=== PATIENT | male | born 1970 | race Caucasian/White ===

== ENCOUNTER 2023-11-12 14:26 | Outpatient (CLI) | payer OTHER, SELFPAY ==
[2023-11-12 14:37] VITALS: BMI 23.0
--- NOTE | 2023-11-12 14:40 | PC.NURSE ---
1440-collected labs via venipuncture stick in left ac with butterfly needle. pt d/c home
[2023-11-12 15:01] LABS: Chloride 103 mmol/L (98-107); Potassium 4.3 mmoL/L (3.5-5.1); Sodium 140 mmol/L (136-145)
[2023-11-12 15:04] LABS: Anion Gap 9.3 mEq/L (5-15); Blood Urea Nitrogen 14 mg/dl (9-20); Calcium 8.9 mg/dl (8.4-10.2); Carbon Dioxide 32 mmol/L (22.0-30.0); Creatinine Clearance Estimated 88 mL/min (50-200); Estimated Glomerular Filt Rate 78 ml/min (>60); GFR (African American) 94 ML/MIN (>60); Glucose 96 mg/dl (74-100)
== END 2023-11-12 14:45 | disposition home or self-care (01) ==
LOC: LAB 14:29 → INF 14:30
PROVIDERS: Visit Provider Internal Medicine
DX: I10 Essential (primary) hypertension (principal)
CPT/HCPCS: 36415; 80048

== ENCOUNTER 2025-10-17 08:16 | Outpatient (CLI) | payer OTHER, SELFPAY ==
--- NOTE | 2025-10-17 08:20 | PC.NURSE ---
0820-collected labs via venipuncture stick in left ac with butterfly needle
--- OUTSIDE RECORDS SUMMARY | 2025-10-17 08:21 | XMS_ITS | Clinical Summary ---
Author Organization [employer] ([place], [place], [place], [place], [place]) Address [address] [place] [address] Care Team Providers Care Faculty Research Physician Name Role Phone Karl Rose MD Primary Care Provider [phone] Social History Tobacco Use Types Packs/Day Years Used Date Smoking Tobacco: Never Assessed Food Insecurity Answer Date Recorded Food run out past 12 months Not on file 11/16 Food did not last past 12 months Not on file 12/03/2023 Employment Answer Date Recorded Help finding and keeping a job Not on file 0 12/03/2023 Family and Community Support Answer Rehan e Recorded Help with Day to Day Activities Not on file 12/03/2023 Feeling Lonely or Isolated Not on file 12/03 Educational Attainment Answer Date Alexander rded Speak language other than Citizen [place] at home Not on file 12/03/2023 Want help with school or training Not on file 12/03/2023 Substance Use Answer Date Recorded Used prescription meds for non-medical reasons N ot on file 12/03/2023 Used illegal drugs past 12 months Not on file 12/03/2023 Sex and Gender Information Value Date Recorded Sex Assigned at Not on file Legal Sex Male 5:20 PM CDT Gender Identity Not on file Sexual Orientation Not on file Plan of Treatment Health Maintenance Due Date Last Done Comments CT Colonography 1968 Colonoscopy 1968 Colorectal Cancer Screening 1968 FOBT/FIT 1968 Fit-DNA (Cologuard) 1968 Sigmoidoscopy 1968 Depression Screening (12+) 1980 Tobacco Cessation Counseling and Screening (12+) 1980 HIV Screening 02/18/1983 Hepatitis C Screening 02/18/1986 DTAP/TDAP/TD VACCINES (1 - Tdap) 02/18/1987 Pneumococcal 50+ years (1 of 1 - PCV) 02/18/2018 Shingles Vaccine (Zoster) (1 of 2) 02/18/2018 COVID-19 VACCINE (4 - 2024- season) 2025 10/17/2021, 12/19/2020, 11/21/2020 Influenza Vaccine (#1) 2025 09/12/2019, 2016 Lipid Panel 08/11/2028 08/11/2023 Procedures Procedure Name Priority Date/Time Associated Diagnosis Comments LIPID PANEL Routine 08/11/2023 8:14 AM EDT General medical examination from Last 3 Months or Most Recently Relevant to Health Maintenance Results * (ABNORMAL) Lipid panel (08/11/2023 8:14 AM EDT) Triglycerides 57 0 - 249 mg/dL 08/11/2023 8:51 AM EDT [facility] Cholesterol 197 0 - 199 mg/dL 08/11/2023 8:51 AM T [facility] Comment: 200 to 239 mg/dL = Moderate (borderline) >239 mg/dL = High HDL Cholesterol 57 >=40 mg/dL 08/11/2023 8:51 AM T [facility] Comment: >=60 mg/dL = Desirable <40 mg/dL = Increased Risk All other components are listed individually or are calculations VLDL Cholesterol 11.4 5 - 40 mg/dL 08/11/2023 8:51 AM EDT [facility] Cholesterol/HDL ratio 3.5(H) 0.0 - 3.2 08/11/2023 8:51 AM EDT [facility] LDl/HDL Ratio 2 0 - 4 08/11/2023 8:51 AM EDT [facility] RISK COMP 3 08/11/2023 8:51 AM T [facility] LDL Cholesterol, Calculated 129(H) 0 - 99 mg/dL 08/11/2023 8:51 AM [facility] Blood Venipuncture / Unknown 08/11/2023 8:14 AM EDT 08/11/2023 8:14 AM EDT us Karl Rose MD LAB BLOOD ORDERABLES Final Res ult [facility] [address] [place] [address], [facility] [phone] from Last 3 Months or Most Recently Relevant to Health Maintenance Insurance BLUE CROSS/BLUE SHIELD BLUE CROSS/BLUE SHIELD Care Teams Faculty Research Physician Relationship Specialty Start Date End Date Karl Rose MD PCP - General Internal Medicine 08/11/23
--- OUTSIDE RECORDS SUMMARY | 2025-10-17 08:21 | XMS_ITS | Data Portability ---
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 Symptoms for the last 4 weeks. My impression and plan Not available 09/05/2024 16:43:58 Plan of Treatment Reminders Order Date Submit Date Provider Last Modified By Organization Details Last Modified Time Details Appointments PHYSICAL EXAM 2025 09:00A M DINESH VILLANUEVA MD Not available Not available Not available Lab PSA, total, serum or plasma 2024 025 [email or web address] [facility], [address] [place] [address], [phone], 01/23/2025 07:46:48 PSA, total, serum or plasma 2024 026 [email or web address] [facility], [address] [place] [address], [address], 12/12/2024 10:09:36 CMP, serum or plasma 2024 025 [email or web address] [facility], [address] [place] [address], [phone], 01/23/2025 07:46:48 CBC w/ auto diff [address], [address] [place] [address], [phone], 01/23/2025 07:46:48 CMP, serum or plasma 2024 026 [facility], [address] [place] [address], [phone], 12/12/2024 10:09:37 CBC w/ auto diff 2024 026 [facility], [address] [place] [address], [address], 12/12/2024 10:09:37 lipid panel, serum [address] [facility], [address] [place] [address], [address], 01/23/2025 07:46:48 TSH, serum, reflex free T4 [address] [facility] [address] [facility], [address] [place] [address], [address], 01/23/2025 07:46:48 lipid panel, serum 2024 026 [facility], [address] [place] [address], [address], 12/12/2024 10:09:37 TSH, serum, reflex free T4 2024 026 [facility], [address] [place] [address], [address], 12/12/2024 10:09:37 ESR (erythroc yte sedimenta tion rate), blood 2023 024 TRAVIS [facility], [address] [place] [address], [phone], 09/05/2024 18:30:07 C reactive protein, QN, serum or plasma 2023 [facility], [address] [place] [address], [address], 09/05/2024 18:00:55 interleuk in-6 (il-6), serum 2023 [facility], [address] [place] [address], [phone], 09/10/2024 22:01:23 Referral None recorded. Procedures None recorded. Surgeries None recorded. Imaging XR, temporoma ndibular joint, bilateral - right TMJ synovitis with psoriatic arthritis - tender 2023 [facility], [address] [place] [address], [phone], 09/06/2024 07:58:41 Medication Orders azithromy adrian 250 mg tablet 2024 025 [facility], [address] [place] [address] [address] [place], [id number], 12/14/2024 12:23:02 Medrol (Rudolph) 4 mg tablets in a dose pack 2024 025 [facility], [address] [place] [address] [address], [place], [place], [id number], 12/14/2024 12:23:03 Patient TargetsNo targets recorded. Patient Instructions Encounter Date Encounter Id Patient Instructions Last Modified By Organization Details Last Modified Time 02/08/2024 [id number] continue +2.50 readers recheck 2 yr noemi Not available 02/08/2024 09:35:45 09/05/2024 [id number] rt index and thumb , [email or web address] Not available 09/05/2024 15:51:30 12/12/2024 [id number] wellness education [email or web address] Not available 12/12/2024 10:09:37 scripts reviewed risks/benefits reviewed high risk meds reviewed labs when fasting continue current medication continue ot monitor labs rtc 12 months with labs physical and prn [email or web address] Not available 12/09/2024 12:33:46 Reason for Referral None Reported. Results Created Date Observation Date Name Description Value Unit Range Abnormal Flag Note LastModifiedBy Organization Detail LastModifiedTime 02/01/20 24 02/01/2024 SURGI [facility] surgical SEE BELOW normal Depar tment of Patho logy Surgi chi Patho logy Repor t NAME: EDGARDO LOPEZ PATH. :ST-2 [id number] Copy to: Diagn osis: A) Esoph ageal biops y: Squam ous mucos a with non-d iagno stic findi ngs. B) Sigmo id polyp : Hyper plast ic polyp . SOURC E OF SPECI MEN: ESOPH AGEAL BIOPS Y COLON POLYP , SIGMO ID CLINI CHI INFOR MATIO N: A) - CHANTELLE L ESOPH YESENIA. BIOPS IED. - CHANTELLE L STOMA CH. - CHANTELLE L EXAMI ROHINI DUODE NUM. [id number] - HEART BURN COLLE CTION : A SPECI MEN REMOV AL: 10:[address] D IN FIXAT KAVYA: 10:15 O'MANJEET CK COLD ISCHE ASHLEY TIME: 0 MINUT ES TOTAL FIXAT ION TIME: 9 HOURS B) - ONE 3mm POLYP IN THE SIGMO ID COLON , REMOV ED WITH A COLD BIOPS Y FORCE PS. RESEC HECTOR & RETRI EVED. - THE EXAMI NATIO N WAS OTHER JEROME CHANTELLE L. Z86.0 10 - PERSO NAL HX COLON IC POLYP S D12.5 - BENIG N NEOPL ASM OF SIGMO ID COLON Gross Descr iptio n: A) Recei vanessa in forma dodie label ed with the patie nt's name and desig nated esop hagea l biops y are two fragm ents of pale cheema tissu e measu ring 0.3 and 0.5 cm. Entir colleen submi tted in one casse tte label ed A1. B) Recei vanessa in forma dodie label ed with the patie nt's name and desig nated sigm oid polyp is a singl e fragm ent of pale cheema tissu e measu ring 0.3 cm. Entir colleen submi tted in one casse tte label ed B1. LP 01/31 05:39 PM Micro scopi c Descr iptio n: A micro scopi c exami natio n has been perfo rmed and the resul t(s) are as noted above . MANNY GARCIA M.D. Eulalia d Out Date: 02/01 10:34 Page 1 of 1 Not Available [facility] [address] [place] [address], [phone], 02/02/2024 10:34:44 09/05/20 24 09/05/2024 C REACT KAVYA PROTE IN C reactive protein 0.61 mg/dL 0.00-0 .49 high Not Available [facility] [address] [place] [address], [phone], 09/05/2024 18:00:55 09/05/2009/05/2024 ESR, AUTOM ATED ESR, automated 11 mm 0-19 normal Not Available [facility] [address] [place], [address], 09/05/2024 18:30:07 09/05/20 24 09/10/2024 INTER LEUKI N-6 interleukin- 6 4.15 pg/mL <5.00 normal This test was perfo rmed using a kit that has not been clear ed or appro vanessa by the FDA. The ankit tical perfo rmanc e lydia cteri stics of this test have been deter mined by [facility] [place] Dobson transonu . This test shoul d not be used for diagn osis witho ut confi rmati on by other medic ally estab lishe d means . Not Available [facility] [address] [place] [address], [address], 09/10/2024 22:01:22 12/29/19 25 12/29/2024 COMPL ETE BLOOD COUNT white blood cells 8.2 10*3/ uL 3.8-10 .8 normal Not Available [facility] [address] [place] [address], [address], 12/29/2024 07:48:40 12/29/19 25 12/29/2024 COMPL ETE BLOOD COUNT red blood cells 4.85 10*6/ uL 4.20-5 .80 normal Not Available [facility] [address] [place] [address], [address], 12/29/2024 07:48:40 12/29/19 25 12/29/2024 COMPL ETE BLOOD COUNT hemoglobin 15.2 g/dL 14.0-1 8.0 normal Not Available [facility] [address] [place] [address], [address], 12/29/2024 07:48:40 12/29/19 25 12/29/2024 COMPL ETE BLOOD COUNT hematocrit 45.0 % 40.0-5 2.0 normal Not Available [facility] [address] [place] [address], [address], 12/29/2024 07:48:40 12/29/19 25 12/29/2024 COMPL ETE BLOOD COUNT MCV 93 fL 80-100 normal Not Available [facility] [address] [place] [address], [address], 12/29/2024 07:48:40 12/29/19 25 12/29/2024 COMPL ETE BLOOD COUNT MCH 31 pg 26-35 normal Not Available [facility] [address] [place] [address], [address], 12/29/2024 07:48:40 12/29/19 25 12/29/2024 COMPL ETE BLOOD COUNT MCHC 34 g/dL 32-36 normal Not Available [facility] [address] [place] [address], [address], 12/29/2024 07:48:40 12/29/19 25 12/29/2024 COMPL ETE BLOOD COUNT RDW 12.9 % 11.0-1 5.0 normal Not Available [facility] [address] [place] [address], [address], 12/29/2024 07:48:40 12/29/19 25 12/29/2024 COMPL ETE BLOOD COUNT MPV 7.5 fL 6.2-10 .5 normal Not Available [facility] [address] [place] [address], [address], 12/29/2024 07:48:40 12/29/19 25 12/29/2024 COMPL ETE BLOOD COUNT platelet count 310 10*3/ uL 150-40 0 normal Not Available [facility] [address] [place] [address], [address], 12/29/2024 07:48:40 12/29/19 25 12/29/2024 COMPL ETE BLOOD COUNT neutrophil,a bsolute 4.0 10*3/ uL 1.6-8. 4 normal Not Available [facility] [address] [place] [address], [address], 12/29/2024 07:48:40 12/29/19 25 12/29/2024 COMPL ETE BLOOD COUNT lymphocyte,a bsolute 2.7 10*3/ uL 0.4-5. 1 normal Not Available [facility] [address] [place] [address], [address], 12/29/2024 07:48:40 12/29/19 25 12/29/2024 COMPL ETE BLOOD COUNT monocyte,abs olute 1.2 10*3/ uL 0.0-1. 2 normal Not Available [facility] [address] [place] [address], [address], 12/29/2024 07:48:40 12/29/19 25 12/29/2024 COMPL ETE BLOOD COUNT eosinophil,a bsolute 0.1 10*3/ uL 0.0-0. 8 normal Not Available [facility] [address] [place] [address], [address], 12/29/2024 07:48:40 12/29/19 25 12/29/2024 COMPL ETE BLOOD COUNT basophil,abs olute 0.1 10*3/ uL 0.0-0. 3 normal Not Available [facility] [address] [place] [address], [address], 12/29/2024 07:48:40 12/29/19 25 12/29/2024 COMPL ETE BLOOD COUNT % neutrophils 49.6 % 42.0-7 8.0 normal Not Available [facility] [address] [place] [address], [address], 12/29/2024 07:48:40 12/29/19 25 12/29/2024 COMPL ETE BLOOD COUNT % lymphocytes 32.6 % 11.0-4 7.0 normal Not Available [facility] [address] [place] [address], [address], 12/29/2024 07:48:40 12/29/19 25 12/29/2024 COMPL ETE BLOOD COUNT % monocytes 14.9 % 0.0-11 .0 high Not Available [facility] [address] [place] [address], [address], 12/29/2024 07:48:40 12/29/19 25 12/29/2024 COMPL ETE BLOOD COUNT % eosinophils 1.8 % 0.0-7. 0 normal Not Available [facility] [address] [place] [address], [phone], 12/29/2024 07:48:40 12/29/19 25 12/29/2024 COMPL ETE BLOOD COUNT % basophils 1.1 % 0.0-3. 0 normal Not Available [facility] [address] [place] [address], [address], 12/29/2024 07:48:40 12/29/19 25 12/29/2024 COMPL ETE BLOOD COUNT nucleated red cells 0.0 % 0.0-0. 9 normal Not Available [facility] [address] [place] [address], [address], 12/29/2024 07:48:40 12/29/19 25 12/29/2024 COMPL ETE BLOOD COUNT nucleated RBCs, absolute 0.00 10*3/ uL not estab. normal Not Available [facility] [address] [place] [address], [address], 12/29/2024 07:48:40 12/29/19 25 12/29/2024 MAGNE SIUM magnesium 2.1 mg/dL 1.6-2. 6 normal Not Available [facility] [address] [place] [address], [address], 12/29/2024 08:16:53 12/29/19 25 12/29/2024 COMP. METAB OLIC PANEL glucose 96 mg/dL 74-100 normal Not Available [facility] [address] [place] [address], [address], 12/29/2024 08:16:55 12/29/19 25 12/29/2024 COMP. METAB OLIC PANEL blood urea nitrogen 11 mg/dL 6-20 normal Not Available [facility] [address] [place] [address], [address], 12/29/2024 08:16:55 12/29/19 25 12/29/2024 COMP. METAB OLIC PANEL creatinine 0.98 mg/dL 0.70-1 .28 normal Not Available [facility] [address] [place] [address], [address], 12/29/2024 08:16:55 12/29/19 25 12/29/2024 COMP. METAB OLIC PANEL BUN/creatini ne ratio 11 (calc ) 10-20 normal Not Available [facility] [address] [place] [address], [address], 12/29/2024 08:16:55 12/29/19 25 12/29/2024 COMP. METAB OLIC PANEL sodium 141 mmol/ L 136-14 5 normal Not Available [facility] [address] [place] [address], [address], 12/29/2024 08:16:55 12/29/19 25 12/29/2024 COMP. METAB OLIC PANEL potassium 4.8 mmol/ L 3.4-5. 0 normal Not Available [facility] [address] [place] [address], [address], 12/29/2024 08:16:55 12/29/19 25 12/29/2024 COMP. METAB OLIC PANEL chloride 103 mmol/ L 98-107 normal Not Available [facility] [address] [place] [address], [address], 12/29/2024 08:16:55 12/29/19 25 12/29/2024 COMP. METAB OLIC PANEL carbon dioxide 28 mmol/ L 22-31 normal Not Available [facility] [address] [place] [address], [address], 12/29/2024 08:16:55 12/29/19 25 12/29/2024 COMP. METAB OLIC PANEL anion gap 10 (calc ) 7-25 normal Not Available [facility] [address] [place] [address], [address], 12/29/2024 08:16:55 12/29/19 25 12/29/2024 COMP. METAB OLIC PANEL calcium 9.3 mg/dL 8.6-10 .2 normal Not Available [facility] [address] [place] [address], [address], 12/29/2024 08:16:55 12/29/19 25 12/29/2024 COMP. METAB OLIC PANEL total protein 6.7 g/dL 6.4-8. 3 normal Not Available [facility] [address] [place] [address], [address], 12/29/2024 08:16:55 12/29/19 25 12/29/2024 COMP. METAB OLIC PANEL albumin 4.2 g/dL 3.5-5. 2 normal Not Available [facility] [address] [place] [address], [address], 12/29/2024 08:16:55 12/29/19 25 12/29/2024 COMP. METAB OLIC PANEL globulin 2.5 1.5-4. 5 normal Not Available [facility] [address] [place] [address], [address], 12/29/2024 08:16:55 12/29/19 25 12/29/2024 COMP. METAB OLIC PANEL albumin/glob ulin ratio 1.7 (calc ) 1.1-2. 5 normal Not Available [facility] [address] [place] [address], [address], 12/29/2024 08:16:55 12/29/19 25 12/29/2024 COMP. METAB OLIC PANEL bilirubin, total 0.4 mg/dL 0.1-1. 2 normal Not Available [facility] [address] [place] [address], [address], 12/29/2024 08:16:55 12/29/19 25 12/29/2024 COMP. METAB OLIC PANEL alkaline phosphatase 73 U/L 40-129 normal Not Available [facility] [address] [place] [address], [address], 12/29/2024 08:16:55 12/29/19 25 12/29/2024 COMP. METAB OLIC PANEL AST 15 U/L 0-40 normal Not Available [facility] [address] [place] [address], [address], 12/29/2024 08:16:55 12/29/19 25 12/29/2024 COMP. METAB OLIC PANEL ALT 18 U/L 0-41 normal Not Available [facility] [address] [place] [address], [address], 12/29/2024 08:16:55 12/29/19 25 12/29/2024 COMP. METAB OLIC PANEL GFR 90 >= 60 normal NOT E New calcu latio n for GFR (CKD- EPI 2020) is formu lated witho ut race adjus tment facto rs at the recom menda tion of the [employer] ation and Ameri can [place] ty of Nephr ology . This calcu latio n has not been valid ated in pregn ant women . For pedia tric patie nts refer to https ://dorian w.kaylah sandhuy.o rg/pr ofess ional s/KDO QI/gf r_cal culat orPed Not Available [facility] [address] [place] [address], [address], 12/29/2024 08:16:55 12/29/19 25 12/29/2024 LIPID PROFI LE HDL cholesterol 57 mg/dL 40-242 normal Not Available [facility] [address] [place] [address], [address], 12/29/2024 08:16:57 12/29/19 25 12/29/2024 LIPID PROFI LE triglyceride s 79 mg/dL 0-149 normal TRIGL YCERI DE RANGE S CHANTELLE L: < 150 BORDE RLINE HIGH: 150 - 199 HIGH: 200 - 499 VERY HIGH: > OR = 500 Not Available [facility] [address] [place] [address], [address], 12/29/2024 08:16:57 12/29/19 25 12/29/2024 LIPID PROFI LE cholesterol 186 mg/dL 0-199 normal LUISANA STERO L (TOTA L) RANGE S JAUN ABLE: < 200 BORDE RLINE : 200 - 239 HIGHE R RISK: > 239 Not Available [facility] [address] [place] [address], [address], 12/29/2024 08:16:57 12/29/19 25 12/29/2024 LIPID PROFI LE LDL cholesterol 113 mg/dL _(chi c) 0-99 high LDL LUISANA STERO L RANGE S OPTIM AL: < 100 NEAR/ ABOVE OPTIM AL: 100 - 129 BORDE RLINE HIGH: 130 - 159 HIGH: 160 - 189 VERY HIGH: > OR = 190 Not Available [facility] [address] [place] [address], [address], 12/29/2024 08:16:57 12/29/19 25 12/29/2024 PROST ATE SPECI FIC AG prostate specific Ag 0.403 NG/mL 0.000- 3.100 normal This test was perfo rmed using Bhavna e801 Elect bhavna milum inesc ent metho d. The test metho d is based on WHO-s tanda rdize d calib ratio n. Value s obtai rohini from diffe rent assay metho ds or manuf actur ers may not be kishor rable . Not Available [facility] [address] [place] [address], [address], 12/29/2024 08:23:08 12/29/19 25 12/29/2024 TSH WITH REFLE X FT4 TSH with reflex FT4 1.560 u[IU] /mL 0.270- 4.200 normal Not Available [facility] [address] [place] [address], [address], 12/29/2024 08:23:10 09/06/20 24 09/05/2024 XR, tempo christina dibul ar joint , bilat eral [facility] [address] [place] [address] Patimami t Name: KASH LOPEZ MD Patimami t : [birth year] Patien t 2 Orderi ng Provid er: JIM VALENZUELA EXAM DATE: 2023 EXAM: XR TMJ BILATE RAL HISTOR Y: Jaw pain COMPAR GUANAKO: None. FINDIN GS: Both TMJs show approp riate motion with openin g closed mouth imagin g. No fractu re is noted. The degree of motion on the right side is limite d or less than the opposi te side. No intrao sseous lesion Interp reted By: Mansi Gibbs MD Electr onical ly Signed By: Mansi Gibbs MD on 2023 7:53 AM TRAVIS [facility] [address] [place], [address], 09/07/2024 13:15:37 10/03/20 24 10/03/2024 MRI, head, w/o contr ast Lexing ton [facility] [address] [place] [address] Patien t Name: KASH LOPEZ MD Patien t : [birth year] Patien t 2 Orderi ng Provid er: JIMSAMUELS EXAM DATE: 2023 EXAM: MR FACE WITHOU T CONTRA ST HISTOR Y: 54-yea r-old male with right- sided facial pain for 6 weeks. COMPAR GUANAKO: Radiog raph dated 2023 FINDIN GS: The TMJ joints are normal in alignm ent bilate rally in the closed mouth positi on. There are mild degene rative change s along the mandib ular head bilate rally, but there is promin ent marrow edema in the right mandib ular head. The disc of the tempor omandi bular joints is in normal positi on bilate rally. There is no disrup tion of the TMJ joint capsul e or the tempor omandi bular ligame nt bilate rally. In the open-m outh positi on, there is normal anteri or sublux ation of the disc and mandib ular head at the TMJ joint bilate rally. This is symmet tasha and there is no disloc ation. The masset er muscle is symmet tasha bilate rally. There is no muscul ar edema or tear. The visual ized paroti d glands and parasp inous muscul ature appear s normal . The visual ized brain parenc hyma is normal . IMPRES YESY: 1. There are mild degene rative change s in the TMJ joints bilate rally. Howeve r, there is promin ent marrow edema in the right mandib ular head which may indica te active inflam matory arthro nabor or increa sing degene rative change . Interp reted By: Lucia meier MD Electr onical ly Signed By: Kinga stahl Yannick meier MD on 2023 8:12 AM [facility] [address], [address], 10/03/2024 13:27:58 Result Notes Documentation Provider Name and Address Organization Details Recorded Time Xr, Temporomandibular Joint, Bilateral : [place] [address] Patient Name: HUE LOPEZ MD Patient : 1970 Patient Ordering Provider: JIM VALENZUELA EXAM DATE: 09/05/2024 EXAM: XR TMJ BILATERAL HISTORY: Jaw pain COMPARISON: None. FINDINGS: Both TMJs show appropriate motion with opening closed mouth imaging. No fracture is noted. The degree of motion on the right side is limited or less than the opposite side. No intraosseous lesion Interpreted By: Mansi Gibbs MD VALENZUELA MD [address] [place] [address], [phone], [facility] 09/07/2024 12:44:41 Mri, Head, W/o Contrast : [place] [address] Patient Name: HUE LOPEZ MD Patient : 1970 Patient Ordering Provider: JIM VALENZUELA EXAM DATE: 10/03/2024 EXAM: MR FACE WITHOUT CONTRAST HISTORY: 54-year-old male with right-sided facial pain for 6 weeks. COMPARISON: Radiograph dated 09/05/2024 FINDINGS: The TMJ joints are normal in alignment bilaterally in the closed mouth position. There are mild degenerative changes along the mandibular head bilaterally, but there is prominent marrow edema in the right mandibular head. The disc of the temporomandibular joints is in normal position bilaterally. There is no disruption of the TMJ joint capsule or the temporomandibular ligament bilaterally. In the open-mouth position, there is normal anterior subluxation of the disc and mandibular head at the TMJ joint bilaterally. This is symmetric and there is no dislocation. The masseter muscle is symmetric bilaterally. There is no muscular edema or tear. The visualized parotid glands and paraspinous musculature appears normal. The visualized brain parenchyma is normal. IMPRESSION: 1. There are mild degenerative changes in the TMJ joints bilaterally. However, there is prominent marrow edema in the right mandibular head which may indicate active inflammatory arthropathy or increasing degenerative change. Interpreted By: Gerard Leach MD JIM VLAENZUELA MD [address] [place] [address], [phone], [facility] 10/03/2024 13:10:56 Problems Name Problem SNOMED Code Status Onset Date Resolution Date Notes Provider Name and Address Organization Details Recorded Time Flexural psoriasi s 754342056 Active 2015 From [employer];Pro vider: Wang Guerrero;Estee tatus: Active Not Available [facility] 7 08:03:33 Cervical spondylo sis 325683893 Active 2018 MANSI SILVESTRE II, PT, DPT [address] [place] [address], [address] [place] [address] , [facility] 9 14:01:08 Muscle weakness 88300025 Completed 201807/06/2019 DINESH VILLANUEVA MD [address] [place] [address], [address] [place] [address] , [facility] 9 15:59:52 Abnormal posture 78366646 Completed 201807/06/2019 DINESH VILLANUEVA MD [address] [place] [address], [address] [place] [address] , [facility] 9 15:59:58 Muscular incoordi nation 72824331 Completed 201807/06/2019 DINESH VILLANUEVA MD [address] [place] [address], [address] [place] [address] , [facility] 9 15:59:56 Essentia l hyperten yesy 06832403 Active 2022 DINESH VILLANUEVA MD [address] [place] [address], [phone] [place] [address] 3 13:09:12 Gastroes ophageal reflux disease without esophagi tis 823444589 Active 2022 DINESH VILLANUEVA MD [address] [place] [address], [address] [place] [address] , [facility] [facility] 3 11:04:06 Presbyop ia [id number] Active 2023 MARCUS RALPH MD [address] [place] [address] 4 09:32:37 Hypermet ropia 98020232 Active 2023 MARCUS RALPH MD [address] [place] [address], [address] [place] [address] 4 09:32:37 Regular astigmat ism 54667634 Active 2023 MARCUS RALPH MD [address] [place] [address], [address] [place] [address] , [facility] 4 09:32:37 Problem Notes Documentation Provider Name and Address Organization Details Recorded Time Rheumatology Note : [place] [id number] LOPEZ MD (id #[id number], : 1970) [place] [id number] Encounter Summary - Progress Note Date Printed: 09/05/2024 Documents sent via fax will include the followingmessage: This fax may contain sensitive and confidential personal health information that is being sent for the sole use of the intended recipient. Unintended recipients are directed to securely destroy any materials received. You are hereby notified that the unauthorized disclosure or other unlawful use of this fax or any personal health information is prohibited. To the extent patient information contained in this fax is subject to 42 CFR Part 2, this regulation prohibits unauthorized disclosure of these records. If you received this fax in error, please visit [email or web address] to notify the sender and confirm that the information will be destroyed. If you do not have internet access, please call to notify the sender and confirm that the information will be destroyed. Thank you for your attention and cooperation. 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 Current concern is ongoing pain in his right temporomandibular joint going on for the last 4 weeks. No real inciting event. No dental infection. No sore throat. No trauma to the joint. 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 Classic dactylitis although this time he does not have any peripheral joint swelling, pain or discomfort just the right TMJ tenderness. He is taking ibuprofen up to 600 to 800 mg twice a day. I had him see Dr. Lopez on 08/19/2024 for a localized ultrasound along with ultrasound-guided steroid injection. The ultrasound did confirm synovitis, active along with neovascularization. He received dexamethasone 4 mg which only lasted for 24 hours essentially was not very helpful. He is not on any systemic therapy for psoriasis. The psoriasis in general has done well except for few guttate lesions in his extremities. He has some inverse psoriasis. Review of SystemsAdditionally reports:No systemic complaints. ROS as noted in the HPI Vitals Ht: 5 ft 11 in Cvfqrl7409/05/2024 03:26 pm Wt: 174 lbs With wypidez7309/05/2024 03:28 pm BMI: 24. 03:28 pm BP: 136/82 sitting R arm09/05/2024 03:28 pm BP Cuff Size: adult09/05/2024 03:26 pm Pulse: bpm qqzasdp3509/05/2024 03:26 pm RR: 1210 03:26 pm O2Sat: 98% Room Air at Rest09/05/2024 03:28 pm Results/InterpretationsNone recorded Physical ExamConstitutional:General Appearance: healthy-appearing, well-nourished, and well-developed. Level of Distress: NAD. Ambulation: ambulating normally and normal tandem gait test. Musculoskeletal System:Joints, Bones, and Muscles: no contractures, malalignment, or bony abnormalities and normal movement of all extremities andtenderness(Tenderness to palpation along the right TMJ.);No peripheral synovitis. Extremities: no cyanosis, edema, varicosities, or palpable cord. Cervical Spine: normal extension and flexion and negative Spurling's maneuver. Lumbar Spine: normal extension, negative straight-leg raising test, and no paravertebral tenderness. Hips: normal internal rotation and external rotation; no tenderness of the SI joints, pain over the greater trochanteric bursa, or trigger point pain; and negative Moises's test. Knees: no ligamentous instability on examination. Skin:Inspection and palpation:lesion(He has cutaneous lesions on his trunk, lower back along with upper arm). Nails:abnormal(Minimal onycholysis right index and thumb);No nail pitting. 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 Symptoms for the last 4 weeks. My impression and plan 1. Psoriatic arthritis-Somewhat perplexing presentation with monoarticular right temporal mandibular joint pain and modest swelling along with palpable tenderness and synovitis based on the focused ultrasound right TMJ dated 08/19/2024. Evidence of neovascularization that goes along with an active inflammatory process. Normal traumatic. No associated dental infection. Does have history of bruxism and is using a mouthguard more consistently in the last 72 hours. However recent dental evaluation was unremarkable, the bite is fairly good as per his dentist. I did not see any evidence of gum hypertrophy or infection. The peripheral joints are unremarkable. He does have several guttate lesions in upper extremities as well as torso. 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 Uses topical agents as needed. No nail pitting with minimal onycholysis involving the right index and thumb. At this point I would like him to have labs, ESR, CRP and IL-6 levels. I would also like him to have x-ray of bilateral TMJ with attention to the right temporomandibular joint. I spoke with Dr. Lopez and she feels very confident about the findings on the ultrasound that confirms the synovitis. Depending upon the findings we will decide if he needs any further studies such as dictated MRI of the right TMJ or a repeat temporomandibular joint intra-articular steroid or oral steroid.Other options such as systemic therapy like PDE 4 inhibitor Otezla or conventional disease modifying agents will be made after completing the workup and seeing response to the steroids.L40.50: Arthropathic psoriasis, unspecified ESR, AUTOMATED C-REACTIVE PROTEIN INTERLEUKIN-6 2. Pain of right temporomandibular joint-Please see above details under the section psoriatic arthritis. Traumatic right TMJ for 4 weeks as detailed above.M26.621: Arthralgia of right temporomandibular joint XR TMJ BILATERAL - Note to Imaging Facility: right TMJ synovitis with psoriatic arthritis- tender Weight (lbs): 174 Date of imagin09/05/2024 Place of service: OFFICE Procedure code: 44211 Authorization: UMR (PPO) [place] [address] Discussion Notesrt index and thumb , oncylosyslis Return to Office DINESH VILLANUEVA MD for PHYSICAL EXAM at [facility] on 12/12/2024 at 10:00 AM to see MARCUS RALPH MD for LEVEL 2 at OPHTHALMOLOGY [facility] on or around 02/07/2026 to see KLARISSA DAWSON MD at [facility] on or around 01/31/2029 Patient Medical History: Allergies List Allergies not reviewed (last reviewed 02/08/2024) IODINATED CONTRAST MEDIA: - Comment: Created By: Sallie Forman;Created Date: 12/23/2006 9:32:06 AM; Medications Reviewed Medications NameDate Source ALPRAZolam 0.5 mg tabletTake 1 tablet(s) every day by oral route as needed.08/10/23 prescribed DINESH VILLANUEVA MD clobetasoL 0.05 % topical creamAPPLY A THIN LAYER TO THE AFFECTED AREA(S) BY TOPICAL ROUTE 2 TIMES PER DAY09/12/19 prescribed WANG GUERRERO MD losartan 50 mg tabletTAKE ONE TABLET BY MOUTH EVERY DAY01/26/24 renewed DINESH VILLANUEVA MD meloxicam 15 mg tabletTake 1 tablet(s) every day by oral route.10/24/23 prescribed ANNAMARIA SIERRA MD Prevacid 30 mg capsule,delayed releaseTake 1 capsule(s) every day by oral route.02/01/24 prescribed KLARISSA DAWSON MD Suflave 178.7 gram-7.3 gram-0.5 gram oral solutionAS [id number]/23/24 prescribed KLARISSA DAWSON MD Suprep Bowel Prep Kit 17.5 gram-3.13 gram-1.6 gram oral solutionAs Spyulpmp64/23/24 prescribed KLARISSA DAWSON MD tacrolimus 0.1 % topical ointmentAPPLY A THIN LAYER TO THE AFFECTED AREA(S) BY TOPICAL ROUTE 2 TIMES PER DAY ; RUB IN GENTLY AND SBVKULTSIG46/21/19 entered DINESH VILLANUEVA MD Family HistoryFamily History not reviewed (last reviewed 02/08/2024) Father - Heart disease - Malignant neoplasm of urinary bladder Past Medical HistoryPast Medical History not reviewed (last reviewed 02/08/2024) Hypertension:Y Vaccine HistoryVaccines not reviewed (last reviewed 12/07/2023) Vaccine Type Date Amt. Route Site [facility] Lot # Mfr. Exp. Date VIS VIS Given [employer]erry[employer] COVID-19 COVID-19, mRNA, LNP-S, PF, 100 mcg/0.5 mL dose (Moderna) 10/17/21 50 mL Intramuscular [id number] [employer] 12/20/21 COVID-19, mRNA, LNP-S, PF, 100 mcg/0.5 mL dose (Moderna) 12/19/20 0.5 mL Intramuscular [id number] [employer] 05/31/21 COVID-19, mRNA, LNP-S, PF, 100 mcg/0.5 mL dose (Moderna) 11/21/20 0.5 mL Intramuscular [id number] [employer] 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, seasonal, injectable 09/05/16 Electronically Signed by: BENY VALENZUELA MD DINESH VILLANUEVA MD [address] [place] [address], [phone], [facility] 09/06/2024 03:24:54 Procedures Surgical History Date Name Laterality Status Provider Name and Address Organization Details Recorded Time 10/06/20 24 Joint Injection, Medium, Ultrasound-Guided completed KUSUM LOPEZ MD [address] [place] [address] [place], [address], [facility] 10/06/2024 16:51:53 08/19/20 24 Joint Injection, Medium, Ultrasound-Guided completed KUSUM LOPEZ MD [address] [place] [address], [phone], [facility] 08/19/2024 19:37:14 08/19/20 24 Ultrasound evaluation, Limited completed KUSUM LOPEZ MD [address] [place] [address] [place], [address], [facility] 08/19/2024 19:35:55 08/01/20 20 PT Evaluation - Low Complexity completed MANSI SILVESTRE II, PT, DPT [address] [place] [address] [place], [address], [facility] 08/01/2020 12:00:03 08/01/20 20 PT Therapeutic Exercise completed MANSI SILVESTRE II, PT, DPT [address] [place] [address], [phone], [facility] 08/01/2020 12:00:29 01/25/20 20 PT Evaluation - Low Complexity completed MANSI SILVESTRE II, [place], DPT [address] [place] [address], [phone], [facility] 02/07/2020 12:49:56 01/25/20 20 PT Therapeutic Exercise completed MANSI ROSAT II, PT, DPT [address] [place], [address], [facility] 02/07/2020 12:50:22 01/20/20 19 PT Manual Therapy completed MANSI SILVESTRE II, PT, DPT [address] [place], [address], [facility] 01/19/2019 11:50:29 01/20/20 19 PT Therapeutic Exercise completed MANSI SILVESTRE II, PT, DPT [address] [place], [address], [facility] 01/19/2019 11:11:00 12/29/19 19 PT Manual Therapy completed MANSI SILVESTRE II, PT, DPT [address] [place], [address], [facility] 01/06/2019 07:58:25 12/29/19 19 PT Therapeutic Exercise completed MANSI SILVESTRE II, PT, DPT [address] [place], [address], [facility] 01/06/2019 07:58:26 12/22/19 19 PT Evaluation - Low Complexity completed MANSI SILVESTRE II, PT, DPT [address] [place], [address], [facility] 12/22/2018 15:05:58 12/22/19 19 PT Therapeutic Exercise completed MANSI SILVESTRE II, PT, DPT [address] [place], [address], [facility] 12/22/2018 15:06:58 04/28/20 18 I&D Abscess/Cyst Single/Simple completed Perla Fleming [facility] 04/28/2018 16:16:46 09/30/20 17 VAS - Low Ext Harsh Dup completed NOMI SOSA MD [address] [place], [address], [facility] 09/30/2017 15:44:18 Tonsillectomy completed DINESH VILLANUEVA MD [address] [place], [address], [facility] 04/18/2019 08:43:45 Vasectomy completed DINESH VILLANUEVA MD [facility] [place], [address], [facility] 04/18/2019 08:43:50 Imaging Results None recorded. Procedure Notes None recorded. Medical Equipment None Reported. Allergies Allergen ID Allergen Name Allergen Category Reaction Reaction Severity Criticality Documentation Date Start Date Code Code System Note Provider Name and Address Organization Details Recorded Time 329786 Iodinated contrast media (substanc e) medicatio n Not available Not available Not available 10/09/20162006 30675 2003 SNOMED Comme nt: Creat ed By: Sallie Millan eated Date: 007 9:32: 06 AM; Not Available [facility] 6 14:21:07 Medications Name Sig Start Date Stop Date Status Note LastModified by Organization Details LastModified Time losartan 50 mg tablet Take 1 tablet every day by oral route for 90 days. 2024 active Not Available Not Available Not Avai lable promethaz ine-DM 6.25 mg-15 mg/5 mL oral syrup 5 ml po tid prn cough 07/06 completed Not Available Not Available Not Available prednison e 10 mg tablet 1 TID X 3 DAYS1 BID X 3 DAYS1 QD X 3 DAYS 12/12 completed Not Available Not Available Not Available doxycycli ne hyclate 100 mg capsule Take 1 capsule twice a day by oral route for 7 days. 07/06 completed Not Available Not Available Not Available azithromy adrian 250 mg tablet TAKE 2 TABLETS (500 MG) BY ORAL ROUTE ONCE DAILY FOR 1 DAY THEN 1 TABLET (250 MG) BY ORAL ROUTE ONCE DAILY FOR 4 DAYS 2024 active Not Available Not Available Not Avai lable meloxicam 15 mg tablet Take 1 tablet every day by oral route. 12/12 completed Not Available Not Available Not Available Medrol (Rudolph) 4 mg tablets in a dose pack Medrol dose pack -- take as directed 2024 active Not Available Not Available Not Avai lable clobetaso l 0.05 % topical cream APPLY A THIN LAYER TO THE AFFECTED AREA(S) BY TOPICAL ROUTE 2 TIMES PER DAY 2018 active Not Available Not Available Not Avai lable ciproflox acin 500 mg tablet Take 1 tablet every 12 hours by oral route for 10 days. 04/18 completed Not Available Not Available Not Available Tamiflu 75 mg capsule Take 1 capsule every day by oral route for 10 days. 04/18 completed Not Available Not Available Not Available alprazola m 0.5 mg tablet Take 1 tablet every day by oral route as needed. 2022 active Not Available Not Available Not Avai lable tacrolimu s 0.1 % topical ointment APPLY A THIN LAYER TO THE AFFECTED AREA(S) BY TOPICAL ROUTE 2 TIMES PER DAY ; RUB IN GENTLY AND COMPLETE LY active Not Available Not Available No t Available dexametha sone 4 mg tablet Take 1 tablet twice a day by oral route. 2024 active Not Available Not Available Not Avai lable lansopraz ole 30 mg capsule,d elayed release Take 1 capsule( s) every day by oral route for 90 days. active Not Available Not Available No t Available lansopraz ole 15 mg capsule,d elayed release Take 1 capsule every day by oral route. 08/11 completed Not Available Not Available Not Available Malarone 250 mg-100 mg tablet Take 1 tablet every day by oral route as directed for 25 days. 07/06 completed Not Available Not Available Not Available ondansetr on 4 mg disintegr ating tablet 1 po tid prn nausea 07/06 completed Not Available Not Available Not Available clobetaso l Two times a day 07/06 completed Instruct ions: Apply to the affected area twice daily.;F requency : bid;Medi cation Descript ion: clobetas ol topical; Dosage:1 ; Route:to pical; refills: 5; Quantity :60 ointment Not Available Not Available Not Available Suprep Bowel Prep Kit 17.5 gram-3.13 gram-1.6 gram oral solution As Directed 12/12 completed Not Available Not Available Not Available Otezla 30 mg tablet Take by oral route for 30 days. 2024 active Not Available Not Available Not Avai lable Otezla Starter 10 mg (4)-20 mg (4)-30 mg(47) tablets in a dose pack Take by mouth as indicate d per starter pack 2024 active Not Available Not Available Not Avai lable Plenvu 140 gram-9 gram-5.2 gram powder packs As directed 07/06 completed Not Available Not Available Not Available Suflave 178.7 gram-7.3 gram-0.5 gram oral solution DIRECTED 12/12 completed Not Available Not Available Not Available Otezla 20 mg tablet 2023 active Not Available Not Available Not Avai labwally Vitals Date Recorded Respiratory rate Heart rate Systolic And Diastolic Provider Name and Address Organization Details Last Updated DateTime 12/12/2024 12 /min 80 /min 130/80 mm[Hg] DINESH VILLANUEVA MD [address] [place] [address], [address], [facility] 12/12/2024 10:02:44 Date Recorded Body height Body mass index (BMI) Body weight Provider Name and Address Organization Details Last Updated DateTime 12/12/2024 180.34 cm 24.3 kg/m2 15735.77 g Ghazala Molina [facility] 12/12/2024 09:46:28 Date Recorded Body height Provider Name an d Address Organization Details Last Updated DateTime 02/08/2024 180.34 cm Alfonso Resendez [facility] 02/08/2024 08:38:58 Date Recorded Body height Body mass index (BMI) Body weight Heart rate Systolic And Diastolic Provider Name and Address Organization Details Last Updated DateTime 08/19/2024 180.34 cm 24.3 kg/m2 05384.07 g 108 /min 144/86 mm[Hg] Gabriel Read [facility] 08/19/2024 16:27:11 Date Recorded Body height Respiratory rate Body mass index (BMI) Body weight Oxygen saturation Systolic And Diastolic Provider Name and Address Organization Details Last Updated DateTime 180.34 cm 12 /min 24.3 kg/m2 01479.0 7 g 98 % 136/82 mm[Hg] Jorge Funez [facility] 4 15:28:05 Date Recorded Body height Body mass index (BMI) Body weight Heart rate Systolic And Diastolic Provider Name and Address Organization Details Last Updated DateTime 10/06/2024 180.34 cm 24.3 kg/m2 16046.07 g 98 /min 128/82 mm[Hg] Gabriel Read [facility] 10/06/2024 15:54:48 Social History Question Answer Notes LastModified by [employer] Details LastModified Time Tobacco Smoking Status Never Smoker DINESH VILLANUEVA MD [facility] [place], [address], [facility] 04/18/2019 08:43:27 How Much Tobacco Do You Chew? None Information not available 04/18/2019 What Was The Date Of Your Most Recent Tobacco Screening? 12/12/2024 Information not available 12/12/2024 Sex: Male Functional Status Question Answer Note LastModified by [employer] Details LastModified Time What is your level of alcohol consumption? 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 Family History Relationship Description Onset Age of this Age Resolved Age Notes LastModified by Organization Details LastModified Time Father Heart disease [email or web address] Not available 2018 08:43:15 Father Malignant neoplasm of urinary bladder [email or web address] Not available 2018 16:10:25 Medical History Condition Response Other Y Reflux/GERD Y Hypertension Y Immunizations Vaccine Type Date Status Note Provider Nam e and Address Organization Details Recorded Time Influenza, split virus, quadrivalent, preservative 7 completed Not Available [facility] 12/07/2023 14:29:08 influenza, unspecified formulation 4 completed DINESH VILLANUEVA MD [facility] [place], [address], [facility] 12/12/2024 10:03:13 influenza, unspecified formulation 8 completed Not Available [facility] 12/07/2023 14:29:08 Influenza, split virus, quadrivalent, preservative 9 completed Not Available [facility] 12/07/2023 14:29:08 COVID-19, mRNA, LNP-S, PF, 100 mcg/0.5mL dose or 50 mcg/0.25mL dose 1 completed Ghazala Molina [facility] 10/27/2023 14:00:05 COVID-19, mRNA, LNP-S, PF, 100 mcg/0.5mL dose or 50 mcg/0.25mL dose 1 [facility] 14:00:05 COVID-19, mRNA, LNP-S, PF, 100 mcg/0.5mL dose or 50 mcg/0.25mL dose 1 completed Ghazala Molina [facility] 10/27/2023 14:00:05 Influenza, split virus, trivalent, preservative 2 completed Ghazala Molina [facility] 10/27/2023 14:00:05 Influenza, split virus, trivalent, preservative 6 completed Ghazala Molina [facility] 10/27/2023 14:00:05 Past Encounters Encounter ID Performer Location Encounter Start Date Encounter Closed Date Diagnosis/Indication Diagnosis SNOMED-CT Code Diagnosis ICD10 Code Diagnosis IMO Codes Diagnosis Note [id number] [facility] [address] 02/16/2017 15:52:01 02/16/2017 15:52:01 [id number] NOMI SOSA MD [facility] CLOSED [address] [facility] [address] 09/30/2017 13:46:12 09/30/2017 15:07:03 Pain in left lower limb 636667214 M79.294 [id number] WANG GUERRERO MD DERMATOLO G[facility] [address] [place] [address] 04/28/2018 16:01:35 04/29/2018 08:52:02 Epidermoid cyst of skin 417723424 L72.0 I & D right mastoid pt prefers to hold on exc for now Pain of skin 131376940 R 52 [id number] MANSI SILVESTRE II, PT, DPT PHYSICAL TH[facility]APY / [facility]APY [facility] CLOSED [address] [place] [address] 12/22/2018 14:15:45 12/27/2018 12:56:35 Cervical spondylosis 925714524 M47.812 Muscle weakness 47591792 M62.81 Abnormal posture 0141901 2 R29.3 Muscular incoordination 45592653 R27.8 [id number] MANSI SILVESTRE II, PT, DPT PHYSICAL THERAPY / [facility]APY [facility] CLOS[facility] [address] [place] [address] 12/29/2018 10:45:33 01/06/2019 10:05:29 Muscle weakness 06224225 M62.81 Cervical spondylosis 387 843515 M47.812 Muscular incoordination 82835927 R27.8 Abnormal posture 2482989 2 R29.3 [id number] MANSI SILVESTRE II, PT, DPT PHYSICAL THERAPY / [facility]AP[facility] CLOS[facility] [address] [place] [address] 01/19/2019 10:34:02 01/25/2019 08:07:01 Muscle weakness 18874409 M62.81 Cervical spondylosis 387 172537 M47.812 Muscular incoordination 90896565 R27.8 Abnormal posture 6503113 2 R29.3 [id number] DINESH VILLANUEVA MD INTERNAL MEDICINE [facility] CLOSED [address] [address] 04/18/2019 08:38:41 04/18/2019 08:52:05 Upper respiratory infection 05894385 J06.9 [id number] DINESH VILLANUEVA MD INTERNAL MEDICINE [facility] CLOSED [address] [place] [address] 07/06/2019 15:57:06 07/06/2019 16:38:11 Adult health examination 432113116 Z00.00 Fatigue 11107925 R53.83 Dyslipidemia 616569456 E 78.5 Screening for malignant neoplasm of prostate 054756403 Z12.5 Nocturia 324044812 R35.1 [id number] KLARISSA DAWSON MD SURGERY SCHEDULE [address] [place] [address] 07/27/2019 07:05:36 07/27/2019 08:00:34 [id number] MANSI SILVESTRE II, PT, DPT PHYSICAL THERAPY / HAND THERAPY [facility] CLOSED [address] [place] [address] 01/25/2020 12:23:57 02/07/2020 13:06:16 Cervical spondylosis 832825021 M47.667 [id number] MANSI SILVESTRE II, PT, DPT PHYSICAL THERAPY / [facility]APY [facility] CLOSED [address] [place] [address] 08/01/2020 11:22:13 08/02/2020 16:55:24 Biceps tendinitis 148530847 M75.21 Muscle weakness 55808758 M62.81 Muscular incoordination 69310520 R27.8 Pain of sh lder region 78630242 M25.511 [id number] DINESH VILLANUEVA MD INTERNAL MEDICINE [address] [place] [address] 08/10/2023 12:46:33 08/13/2023 12:13:07 Adult health examination 264525476 Z00.00 Screening for malignant neoplasm of prostate [id number] Z12.5 Essential hypertension [id number] I10 Travel 153330913 Z76.89 [id number] DINESH VILLANUEVA MD INTERNAL MEDICINE SB [address] [place] [address] 12/07/2023 14:28:16 12/08/2023 04:29:04 Essential hypertension [id number] I10 [id number] KLARISSA DAWSON MD SURGERY SCHEDULE [address] [place] [address] 1 02/01/2024 08:44:29 02/01/2024 08:44:51 Gastroesophageal reflux disease without esophagitis 834294012 K21.9 [id number] MARCUS RALPH MD OPHTHALMO [address] [place] [address] 02/08/2024 08:24:11 02/08/2024 10:17:20 Hypermetropia 47542937 H52.03 Regular astigmatism 6890 5002 H52.223 Presbyopia 79954968 H52. 4 [id number] KUSUM LOPEZ MD PHYSICAL MEDICINE & REHABILIT ATION CLOSED [address] [place] [address] 08/19/2024 16:21:34 08/22/2024 10:28:01 Pain of right temporomandibular joint [id number] M26.621 Inflammato ry arthritis apparently involving the right TMJ joint. Diagnostic ultrasound confirmed synovial effusion with active synovitis. Performed ultrasound -guided steroid injection into the right TMJ with full resolution of pain post procedural ly. Follow-up as needed Psoriatic arthritis 1563 12538 L40.50 [id number] BENY VALENZUELA MD RHEUMATOL OGY [address] [place] [address] 09/05/2024 15:19:58 09/06/2024 04:34:52 Psoriatic arthritis [id number] L40.50 Somewhat perplexing presentati on with monoarticu lar right temporal mandibular joint pain and modest swelling along with palpable tenderness and synovitis based on the focused ultrasound right TMJ dated 08/19/2024. Evidence of neovascula rization that goes along with an active inflammato ry process. Normal traumatic. No associated dental infection. Does have history of bruxism and is using a mouthguard more consistent ly in the last 72 hours. However recent dental evaluation was unremarkab le, the bite is fairly good as per his dentist. I did not see any evidence of gum hypertroph y or infection. The peripheral joints are unremarkab le. He does have several guttate lesions in upper extremitie s as well as torso. 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 Uses topical agents as needed. No nail pitting with minimal onycholysi s involving the right index and thumb. At this point I would like him to have labs, ESR, CRP and IL-6 levels. I would also like him to have x-ray of bilateral TMJ with attention to the right temporoman dibular joint. I spoke with Dr. Lopez and she feels very confident about the findings on the ultrasound that confirms the synovitis. Depending upon the findings we will decide if he needs any further studies such as dictated MRI of the right TMJ or a repeat temporoman dibular joint intra-andrés cular steroid or oral steroid.Ot her options such as systemic therapy like PDE 4 inhibitor Otezla or convention al disease modifying agents will be made after completing the workup and seeing response to the steroids. Pain of ri ght temporomandibular joint [id number] M26.621 Please see above details under the section psoriatic arthritis. Traumatic right TMJ for 4 weeks as detailed above. [id number] KUSUM LOPEZ MD PHYSICAL MEDICINE & REHABILIT ATION CLOSED [address] [place] [address] 10/06/2024 15:44:01 10/10/2024 11:21:51 Pain of right temporomandibular joint [id number] M26.621 Inflammato ry arthritis involving the right TMJ joint. Performed ultrasound -guided steroid injection into the right TMJ with improvemen t of sharp pain post procedural ly. Used 6 mg of dexamethas one rather than 4 mg given limited response previously . Follow-up as needed [id number] DINESH VILLANUEVA MD INTERNAL MEDICINE [address] [place] [address] 12/12/2024 09:41:36 12/15/2024 11:58:19 Adult health examination [id number] Z00.00 Essential hypertension 65592221 I10 Psoriatic arthritis 1563 08516 L40.50 Screening for malignant neoplasm of prostate 824886826 Z12.5 Travel [id number] Z76.89 Health Concerns Section Related Observation LastModified by Organization Detai ls LastModified Time None Recorded Concern Status LastModified by Organization Details LastModified Time None Recorded Advance Directives Directive None Recorded Payers Insurance Date Sequence Insurance Name Policy Number Policy Waters Covered Member ID Waters Member ID Guarantor Name 08/19/2024 1 [employer] [id number] Hue Jessica [id number] Hue Lopez 12/30/2024 1 [facility] (PPO) [id number] Hue Lopez [id number] Hue Lopez 08/19/2024 1 [facility] [id number] Hue Lopez [id number] Hue Lopez 08/19/2024 1 [place] [id number] Hue Lopez [id number] Hue Lopez 08/19/2024 1 [facility] (PP[facility]) [id number] Hue Lopez [id number] Hue Lopez 08/19/2024 1 [facility] [id number] Hue Lopez [id number] Hue Lopez Notes Date Note Type Note Provider Name and Address Organization Details Recorded Time 4 text/html 54-year-old male who is an 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 He has a history of bruxism but without jaw pain. He denies popping, clicking, catching, or getting locked. Pain is when he opens his jaw. Tenderness to touch with some mild swelling on the right cheek. Rarely has psoriatic flares averaging every 3 years and typically in various joints. No skin rash currently. He has been taking high-dose ibuprofen and naproxen with some relief but it is causing GI upset so he requests localized steroid injection if possible. [facility]USUM LOPEZ [facility] 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 Current concern is ongoing pain in his right temporomandibular joint going on for the last 4 weeks. No real inciting event. No dental infection. No sore throat. No trauma to the joint. 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 Classic dactylitis although this time he does not have any peripheral joint swelling, pain or discomfort just the right TMJ tenderness. He is taking ibuprofen up to 600 to 800 mg twice a day. I had him see Dr. Lopez on 08/19/2024 for a localized ultrasound along with ultrasound-guided steroid injection. The ultrasound did confirm synovitis, active along with neovascularization. He received dexamethasone 4 mg which only lasted for 24 hours essentially was not very helpful. He is not on any systemic therapy for psoriasis. The psoriasis in general has done well except for few guttate lesions in his extremities. He has some inverse psoriasis. BENY VALENZUELA MD [facility] [place], [address], [facility] 09/05/2024 16:49:05 4 text/html 54-year-old male here for repeat steroid injection to the right TMJ due to refractory inflammatory psoriatic arthritis. He noted 1 to 3 days of benefit from the first injection. He was then placed on high-dose oral steroids with excellent improvement but symptoms returned immediately upon cessation. He has been taking NSAIDs daily. Last oral steroids about 3 weeks ago. Rheumatology and patient are requesting second injection due to persistent pain, joint dysfunction with difficulty opening jaw and chewing food. MRI confirmed inflammatory arthritis of the TMJ as well. He also had a bout of spontaneous bilateral bicipital tendinitis and posterior foot pain recently. KUSMU LOPEZ MD [facility] [place], [address], [facility] 10/06/2024 16:55:13 5 text/html He is here for a physicalHypertension is chronic, ongoing, stable DINESH VILLANUEVA MD [facility] [place], [address], [facility] 12/12/2024 10:13:21
--- OUTSIDE RECORDS SUMMARY | 2025-10-17 08:21 | XMS_ITS | Referral Summary ---
Author Organization [employer] ([place], [place], [place], [place], [place]) Address [address] [place] [address] Care Team Providers Care Rag Room Supervisor Name Role Phone Karl Rose MD Primary Care Provider [phone] Social History Tobacco Use Types Packs/Day Years [...] Date Alexander rded Speak language other than Iraqi at home Not on file 12/03/2023 Want [...] Orientation Not on file Plan of Treatment Not on file Procedures Procedure Name Priority Date/Time Associated Diagnosis Comments LIPID PANEL Routine 08/11/2023 8:14 AM EDT General medical examination from Last 3 Months or Most Recently Relevant to Health Maintenance Results * (ABNORMAL) Lipid panel (08/11/2023 8:14 AM EDT) Triglycerides 57 0 - 249 mg/dL 08/11/2023 8:51 AM EDT [facility] Cholesterol 197 0 - 199 mg/dL 08/11/2023 8:51 AM EDT [facility] Comment: 200 to 239 mg/dL = Moderate (borderline) >239 mg/dL = High HDL Cholesterol 57 >=40 mg/dL 08/11/2023 8:51 AM EDT [facility] Comment: >=60 mg/dL = Desirable <40 mg/dL = Increased Risk All other components are listed individually or are calculations VLDL Cholesterol 11.4 5 - 40 mg/dL 08/11/2023 8:51 AM EDT [facility] Cholesterol/HDL ratio 3.5(H) 0.0 - 3.2 08/11/2023 8:51 AM EDT [facility] LDl/HDL Ratio 2 0 - 4 08/11/2023 8:51 AM EDT [facility] RISK COMP 3 08/11/2023 8:51 AM EDT [facility] LDL Cholesterol, Calculated 129(H) 0 - 99 mg/dL 08/11/2023 8:51 AM EDT [facility] Blood Venipuncture / Unknown 08/11/2023 8:14 AM EDT 08/11/2023 8:14 AM EDT Karl Rose MD LAB BLOOD ORDERABLES Final Res ult [facility] [address] [place] [address] from Last 3 Months or Most Recently Relevant to Health Maintenance Insurance BLUE CROSS/BLUE SHIELD BLUE CROSS/BLUE SHIELD Care Teams Rag Room Supervisor Relationship Specialty Start Date End Date Karl Rose MD PCP - General Internal Medicine 08/11/23
[2025-10-17 08:33] LABS: Hematocrit 44.2 % (42.0-52.0); Hemoglobin 15.4 g/dL (14.1-18.0); Immature Granulocytes % 0.4 %; Mean Corpuscular HGB Conc 34.8 g/dL (31.8-35.4); Mean Corpuscular Hemoglobin 32.2 pg (27.0-31.2); Mean Corpuscular Volume 92.3 fl (80-94); Nucleated Red Blood Cells % 0 %; Platelet Count 309 K/mm3 (142-424); Red Blood Count 4.79 M/mm3 (4.60-6.20); Red Cell Distribution Width-SD 43.3 fL; White Blood Count 8.2 K/mm3 (4.8-10.8)
[2025-10-17 09:12] LABS: Albumin Level 4.5 g/dl (3.5-5.0); Chloride 101 mmol/L (98-107); Potassium 4.3 mmoL/L (3.5-5.1); Sodium 142 mmol/L (136-145)
[2025-10-17 09:15] LABS: Alanine Aminotransferase 57 U/L (12-78); Albumin/Globulin Ratio 1.4 (1.1-1.8); Alkaline Phosphatase 63 U/L (38-126); Anion Gap 13.3 mEq/L (5-15); Aspartate Amino Transferase 47 U/L (17-59); Bilirubin,Total 0.5 mg/dl (0.2-1.3); Blood Urea Nitrogen 12 mg/dl (9-20); Calcium 9.4 mg/dl (8.4-10.2); Carbon Dioxide 32 mmol/L (22.0-30.0); Creatinine,Serum 0.90 mg/dl (0.66-1.25); Estimated Glomerular Filt Rate 87 ml/min (>60); GFR (African American) 105 ML/MIN (>60); Globulin 3.2 g/dL (1.3-3.2); Glucose 102 mg/dl (74-100); Total Protein,Serum 7.7 g/dl (6.3-8.2)
[2025-10-17 10:14] VITALS: BMI 22.7
== END 2025-10-17 23:59 | disposition home or self-care (01) ==
PROVIDERS: PCP Internal Medicine Rheumatology; Visit Provider Internal Medicine Rheumatology
DX: Z79.899 Other long term (current) drug therapy (principal)
CPT/HCPCS: 36415; 80053; 85025